=== PATIENT | female | born 1940 | race Caucasian/White ===

== ENCOUNTER → 2017-12-01 17:24 | Outpatient (CLI) | payer MEDICARE, OTHER ==
[2013-05-31 14:44] VITALS: BMI 22.3
[~2017-12-01 17:24] MED LIST: AVAPRO150 MG PO; CALTRATE-600600 MG PO; CELEBREX200 MG PO; FISH OIL 1,0001 CA1 PO; HYDROCHLOROTH12.5 M1 PO; LANOXIN125 MCG PO; METHOTREXATE2.5 MG PO; NEXIUM40 MG PO; SYNTHROID50 MCG PO; UROCIT-K10 MEQ PO; VIVELLE-DO.0375 MG/2 TD; ZEBETA5 MG PO; ZYLOPRIM100 MG PO
== END | disposition home or self-care (01) ==
LOC: D.MAMMO 15:00
DX: Z12.31 Encounter for screening mammogram for malignant neoplasm of breast (principal)

== ENCOUNTER 2018-08-23 13:12 | Day surgery (SDC) | payer MEDICARE, OTHER ==
[~2018-08-23] VITALS: Ht 160 cm; Wt 53.2 kg
--- NOTE | ~2018-08-23 | OP ---
PATIENT NAME: SULEIMAN HICKEY MEDICAL RECORD: [id number] :40 LOCATION:D[facility] ADMISSION DATE: SURGEON: GERI NAGEL MD DATE OF OPERATION: 08/23/2018 PROCEDURE: Colonoscopy with biopsy. REFERRING PHYSICIAN: Juan Ortiz MD LINUX SYSTEM ADMIN: Dr. Brannon Davis INDICATIONS: Ms. Hickey is a delightful 78-year-old woman with history of a hyperplastic rectal polyps and diverticulosis coli. Last colonoscopy was in 2012. She has a family history of colon cancer. She presents for outpatient surveillance colonoscopy. PREMEDICATIONS: Total IV anesthesia (coronary artery disease), propofol 170 mg. INSTRUMENT: Portal Profes video colonoscope, pediatric. PROCEDURE AND FINDINGS: After receiving informed consent, Ms. Hickey was placed in left lateral decubitus position and sedated as per anesthesia. After achieving adequate level of sedation, digital rectal exam was performed that showed few external hemorrhoidal tags. No fissures or fistulas. Normal sphincter tone. No palpable rectal masses. The colonoscope was introduced per rectally and advanced to the cecum without difficulty. The cecum, IC valve, and appendiceal orifice were identified and appeared normal. As the colonoscope was withdrawn, careful inspection was made of the serna of the colon. Overall, the mucosa had normal vascular and fold pattern. There were multiple diverticula noted in the sigmoid colon. In the rectum, were 2 diminutive polyps measuring 0.25 cm in size, sessile, and were cold biopsied. Retroflexion in the rectum showed internal hemorrhoids. A good prep was present. Ms. Hickey tolerated the procedure well. No immediate complications. ASSESSMENT: 1. Two small rectal polyps, status post biopsy. 2. Moderate sigmoid diverticulosis coli. 3. Internal hemorrhoids. 4. Family history of colon cancer. RECOMMENDATIONS: 1. Followup histopathology. 2. High-fiber diet. 3. Recommend surveillance colonoscopy in 5 years or p.r.n. TRANSINT:[id number] Voice Confirmation ID: [id number] DOCUMENT ID: [id number] OPERATIVE REPORT [id number] SULEIMAN HCIKEY GERI NAGEL MD at 0024 CC: JUAN ORTIZ MD and BRANNON FOSTER [id number] DICTATION DATE: 08/23/18 8473 AUDITOR TAX: 08/23/18 2334 [facility] 08/23/18 [place] [id number] [facility] [place] [address]
[2018-08-23 13:32] LABS: HEMATOCRIT 41.6 % (36.0-48.0); HEMOGLOBIN 14.1 g/dL (12-16); MCHC 33.9 g/dL (31.0-37.0); MCV 94.3 fL (80.0-100.0); MEAN PLATELET VOLUME 10.1 fL (7.4-10.4); RBC 4.41 10x6/uL (4.00-5.40); RDW 13.6 % (11.5-14.5); WBC 4.2 10x3/uL (4.8-10.8)
[2018-08-23 13:52] VITALS: BP 141/71; Ht 160 cm; Wt 53.2 kg
[2018-08-23] MEDS ORDERED: PLAVIX75 MG PO (14:00)
[2018-08-23] MEDS ORDERED: ZETIA10 MG PO (14:01)
[2018-08-23] MEDS ORDERED: FOLIC ACID1 MG PO (14:01)
[2018-08-23] MEDS ORDERED: VITAMIN D250000 UNIT PO (14:02)
== END 2018-08-23 18:02 | disposition home or self-care (01) ==
LOC: D.OPS 13:12
PROVIDERS: Anesthesiology
DX: D12.8 Benign neoplasm of rectum (principal); K57.30 Diverticulosis of large intestine without perforation or abscess without bleeding; K64.8 Other hemorrhoids; I25.10 Atherosclerotic heart disease of native coronary artery without angina pectoris; Z80.0 Family history of malignant neoplasm of digestive organs

== ENCOUNTER 2019-01-03 19:00 | Outpatient (CLI) | payer MEDICARE, OTHER ==
[2018-08-23 13:52] VITALS: BMI 20.7
[~2019-01-03 19:00] MED LIST changes: +FOLIC ACID1 MG PO; +PLAVIX75 MG PO; +VITAMIN D250000 UNIT PO; +ZETIA10 MG PO
== END 2019-01-03 23:59 | disposition home or self-care (01) ==
LOC: D.MAMMO 19:00
PROVIDERS: ATTEND Obstetrics & Gynecology
DX: Z12.31 Encounter for screening mammogram for malignant neoplasm of breast (principal)

== ENCOUNTER → 2020-03-06 22:00 | Outpatient (CLI) | payer MEDICARE, OTHER ==
[2018-08-23 13:52] VITALS: BMI 20.7
== END | disposition home or self-care (01) ==
LOC: D.MAMMO 01-05 11:15
PROVIDERS: ATTEND Obstetrics & Gynecology
DX: Z12.31 Encounter for screening mammogram for malignant neoplasm of breast (principal)

== ENCOUNTER → 2021-03-07 15:30 | Outpatient (CLI) | payer MEDICARE, OTHER ==
[2018-08-23 13:52] VITALS: BMI 20.7
== END ==
LOC: D.MAMMO 15:30
PROVIDERS: ATTEND Internal Medicine
DX: Z12.31 Encounter for screening mammogram for malignant neoplasm of breast (principal)